=== PATIENT | male | born 1940 | race Caucasian/White ===

== ENCOUNTER → 2017-02-14 | Outpatient (CLI) | payer MEDICARE, OTHER ==
[~2017-02-14] MED LIST: APRESOLINE 25MG25 MG PO; ASPIRIN 32325 MG/TAB PO; ASPIRIN E.C. 8181 MG PO; COLACE100 MG PO; COREG 3.123.125 MG/T PO; COREG6.25 MG PO; COUMADIN4 MG PO; DICLOFENAC 1.3%; FISH OIL 1000MG1 CAP PO; HEALTH CARE AM325 M1 PO; HYZAAR 12.5 MG-1 TAB PO; LIPITOR 40MG TA40 MG PO; LIPITOR80 MG PO; LISINOPRIL5 MG PO; LOW DOSE ASPIRI81 MG PO; MELAT3MGTAB PO; MULTI VITAMINS1 TAB PO; NORVASC 5MG5 MG/TAB PO; PEPCID 20MG TAB20 MG PO; PEPCID AC 10MG10 MG PO; PLAVIX 75MG TAB75 MG PO; STOOL SOFTENER100 MG PO; THE MEDICINE S200 M2 PO; TOPROL XL25 MG PO; ZOCOR20 MG PO
== END ==
LOC: COL.PUL 01-21 08:00
DX: R06.00 Dyspnea, unspecified (principal)

== ENCOUNTER → 2017-08-20 | Outpatient (CLI) | payer MEDICARE, OTHER | LOC: COL.PUL 07:27 | DX: R06.02 Shortness of breath (principal) ==

== ENCOUNTER → 2019-09-16 | Outpatient (CLI) | payer MEDICARE, OTHER | LOC: COL.RAD 14:39 | DX: M51.36 Other intervertebral disc degeneration, lumbar region (principal); M41.86 Other forms of scoliosis, lumbar region ==

== ENCOUNTER → 2019-10-27 | Outpatient (CLI) | payer MEDICARE, OTHER | LOC: MHCPAIN 13:11 | DX: M53.3 Sacrococcygeal disorders, not elsewhere classified (principal); M54.16 Radiculopathy, lumbar region; M41.9 Scoliosis, unspecified; M48.061 Spinal stenosis, lumbar region without neurogenic claudication | CPT/HCPCS: G0463 ==

== ENCOUNTER 2019-12-01 14:00 | Outpatient (RCR) | payer MEDICARE, OTHER | END 2020-01-11 | disposition still patient (30) | LOC: WSC | DX: M48.062 Spinal stenosis, lumbar region with neurogenic claudication (principal); M51.36 Other intervertebral disc degeneration, lumbar region ==

== ENCOUNTER → 2020-05-29 | Outpatient (CLI) | payer MEDICARE, OTHER | LOC: COL.RAD 13:37 | DX: M48.062 Spinal stenosis, lumbar region with neurogenic claudication (principal); M51.36 Other intervertebral disc degeneration, lumbar region; M41.86 Other forms of scoliosis, lumbar region; M47.816 Spondylosis without myelopathy or radiculopathy, lumbar region; M71.38 Other bursal cyst, other site ==

== ENCOUNTER → 2021-04-03 | Outpatient (CLI) | payer MEDICARE, OTHER ==
[~2021-04-03] VITALS: Ht 185.4 cm; Wt 99.5 kg
[~2021-04-03] MED LIST changes: +ASTELIN NASAL S34 ML NS; +COLACE 100100 MG/CAP PO; -COLACE100 MG PO; +COZAAR 50MG50 MG/TAB PO; +DUO-KAPS1 CAP PO; +EPA FISH OIL1 SGL PO; +FLOMAX 0.40.4 MG/CAP PO; +FLONASEALLERGY NS; +ISORDIL TITRADO30 MG PO; -MULTI VITAMINS1 TAB PO; +NORVASC 10MG10 MG PO; -NORVASC 5MG5 MG/TAB PO; +PROTONIX 40MG T40 MG PO; +REGLAN 5MG T5 MG/TAB PO; +TOPROL XL 25MG25 MG PO
[2021-04-03 11:35] VITALS: BP 153/67; PULSE 60; TEMP 98.3
--- NOTE | 2021-04-03 12:10 | NUR ---
Dr Marin into to talk with pt. Neck rescanned by Dr Marin no nodule found procedure canceled. Pt back to holding area and pt changed clothing and pt walked out.
== END ==
LOC: COL.RAD 11:07
DX: E04.1 Nontoxic single thyroid nodule (principal)

== ENCOUNTER 2021-06-18 12:26 | Day surgery (SDC) | payer MEDICARE, OTHER ==
[2021-06-18] VITALS (10 sets, daily range): BP systolic 96–139; BP diastolic 40–79; PULSE 45–56; TEMP 97.8
[~2021-06-18] VITALS: Ht 185.4 cm; Wt 96.0 kg
[~2021-06-18 12:26] MED LIST changes: -COZAAR 50MG50 MG/TAB PO; -ISORDIL TITRADO30 MG PO; -TOPROL XL 25MG25 MG PO
[2021-06-18 13:08] LABS: HEMOGLOBIN 14.3 g/dl (13.5-18.0); MEAN CELL VOLUME 94 fl (80.0-100.0); MEAN CORPUSCULAR HEMOGLOBIN 32 pg (27.0-31.0); MEAN CORPUSCULAR HGB CONC 34 g/dl (33.0-37.0); MEAN PLATELET VOLUME 9.4 fl (7.4-10.4); PLATELET COUNT 231 K/mm3 (130-400); RED BLOOD COUNT 4.47 M/mm3 (4.20-5.60); REDCELL DISTRIBUTION WIDTH-CV 12.7 % (11.5-14.5)
[2021-06-18 13:14] LABS: INR 1.1 (0.8-3.0); PROTHROMBIN TIME 11.8 SECONDS (9.7-12.8)
[2021-06-18 13:16] LABS: PARTIAL THROMBOPLASTIN TIME 28.8 SECONDS (26.0-37.0)
[2021-06-18 13:19] LABS: CALCIUM 9.5 mg/dL (8.4-10.2); CREATININE, serum 1.41 mg/dL (0.72-1.25); POTASSIUM 4.4 mmol/L (3.5-4.5)
--- NOTE | 2021-06-18 13:55 | NUR ---
SEE MERGE FOR ALL MEDCIATION ADMINISTRATION TIMES, INTRA AND POST SEDATION ASSESSMENTS
[2021-06-18] MEDS ORDERED: ISORDIL TITRADO30 MG PO (14:07)
[2021-06-18] MEDS ORDERED: COZAAR 50MG50 MG/TAB PO (14:07)
[2021-06-18] MEDS ORDERED: TOPROL XL 25MG25 MG PO (14:08)
--- NOTE | 2021-06-18 15:30 | NUR ---
PT back to [facility] after heart cath, report was received from [facility]. Pt is awake and alert, pwd, TR band to rt wrist, cms intact distal. Telemetry intiated, sinus natasha on monitor rate 50's/ call light in reach, lunch ordered. Pt aware of poc.
--- NOTE | 2021-06-18 18:30 | NUR ---
TR band has been deflated with no problem. site dressed with bandaid, folded 2x2 and coban. cms remains intact distal. I have reviewed dc and fu instructions with pt who verbalized understanding. Pt has been up and ambulatory in his room with steady gait with cane. IV was dc'd with cath intact, dressing was applied. Pt is ready for departure.
== END 2021-06-18 19:09 | disposition home or self-care (01) ==
LOC: COL.CAR 12:26
PROVIDERS: Internal Medicine Interventional Cardiology
DX: I25.10 Atherosclerotic heart disease of native coronary artery without angina pectoris (principal); R00.1 Bradycardia, unspecified; I70.1 Atherosclerosis of renal artery; I08.0 Rheumatic disorders of both mitral and aortic valves; I42.9 Cardiomyopathy, unspecified; E78.5 Hyperlipidemia, unspecified; Z20.822 Contact with and (suspected) exposure to COVID-19; Z79.02 Long term (current) use of antithrombotics/antiplatelets; Z79.899 Other long term (current) drug therapy; Z95.820 Peripheral vascular angioplasty status with implants and grafts; Z79.82 Long term (current) use of aspirin
CPT/HCPCS: C1769; J1644; J3010